=== PATIENT | female | born 1945 | race Caucasian/White ===

== ENCOUNTER 2017-11-20 08:47 | Outpatient (CLI) | payer MEDICARE ==
--- NOTE | 2017-11-20 12:15 | PET ---
PET SCAN WITH CT ATTENUATION CORRECTION: HISTORY: 72-year-old female with pancreatic cancer. COMPARISON: None. TECHNIQUE: PET scanning with CT attenuation correction is performed from the base of the brain to the proximal t highs following the intravenous administration of 3.63 mCi [id number]. FINDINGS: HEAD/NECK: There is symmetric uptake of the radiotracer involving the posterior musculature likely due to muscul ar contraction. CHEST: There is subtle ground-glass opacification and FDG localization in the left lower lobe likely represe nting area of infiltrate or possibly atelectatic lung. The maximum SUV in this area is 2.4. ABDOMEN: There is increased FDG localization in the left upper quadrant, likely in the mesentery. A mesenteric lymph node with a SUV of 3.3 is favored. There is also hypermetabolic peripancreatic lymph node with a maximum SUV of 3.8. There is no abnormal FDG localization in the pancreas. There is abnormal FDG localization in the right hepatic lobe with a maximum SUV of 4.8. CT used for attenuation correction demonstrates a stent in the common bile duct with air in the left intrahepatic biliary system. PELVIS: No abnormal FDG localization. OSSEOUS STRUCTURES: No abnormal FDG localization. IMPRESSION: Increased FDG localization in the liver, worrisome for metastasis. There appear to be metastatic marilia pancreatic and left upper quadrant lymph nodes. Correlation with CT would be beneficial. POS: MICKEY
== END 2017-11-20 08:48 | disposition home or self-care (01) ==
LOC: PET 08:47
PROVIDERS: ATTEND Internal Medicine Hematology & Oncology
DX: C25.9 Malignant neoplasm of pancreas, unspecified (principal); R93.3 Abnormal findings on diagnostic imaging of other parts of digestive tract
CPT/HCPCS: 78815; A9552